=== PATIENT | female | born 1945 | race Two or more races ===

== ENCOUNTER 2023-01-17 09:33 | Emergency (ER) | payer OTHER ==
[~2023-01-17] VITALS: Ht 160 cm; Wt 61.2 kg
[~2023-01-17 09:33] MED LIST: NAPR500T14 PO; TIZANIDINE HCL4 MG PO
[2023-01-17] MEDS ORDERED: AMBIEN5 MG PO (09:49)
[2023-01-17] MEDS ORDERED: COZAAR50 MG PO (09:50)
[2023-01-17] MEDS ORDERED: APRESOLINE 10MG10 MG PO (09:50)
== END 2023-01-17 13:41 ==
LOC: ER 09:33
DX: F41.9 Anxiety disorder, unspecified (principal); I10 Essential (primary) hypertension; E03.9 Hypothyroidism, unspecified; E78.00 Pure hypercholesterolemia, unspecified

== ENCOUNTER 2023-11-24 05:00 | Day surgery (SDC) | payer OTHER ==
[2023-11-17 08:54] LABS: HEMATOCRIT 36.9 % (36.0-45.00); HEMOGLOBIN 12.4 g/dL (12.0-15.00); MEAN CELL VOLUME 78.9 fL (80.00-100.00); MEAN CORPUSCULAR HEMOGLOBIN 26.5 pg (27.00-32.0); MEAN CORPUSCULAR HGB CONC 33.6 g/dl (32.0-36.0); PLATELET COUNT 214 K/uL (150-450); RED BLOOD COUNT 4.67 M/uL (4.00-6.00)
[2023-11-17 09:28] LABS: INR 1.04; PARTIAL THROMBOPLASTIN TIME 30.9 SECONDS (22.0-34.0); PROTHROMBIN TIME 11.3 SECONDS (9.0-11.5)
[2023-11-17 09:45] LABS: URINE APPEARANCE Clear; URINE BILIRRUBIN Negative (NEGATIVE); URINE BLOOD Trace; URINE COLOR Yellow; URINE GLUCOSE Negative (NEGATIVE); URINE KETONE Negative (NEGATIVE); URINE LEUKOCYTE Small; URINE NITRATE Negative; URINE PROTEIN Negative (NEGATIVE); URINE UROBILINOGEN 0.2 E.U./dl
[2023-11-17 09:46] LABS: ALBUMIN 3.6 gm/dL (3.4-5.0); BILIRUBIN TOTAL 0.34 mg/dL (0.3-1.2); CREATININE SERUM 0.78 mg/dL (0.55-1.02); GFR 71.81; GLOBULINA 3.9 G/DL (2.4-3.5); POTASSIUM 3.84 mEq/L (3.5-5.1); TOTAL PROTEIN 7.5 gm/dL (6.4-8.2)
[2023-11-17 09:50] LABS: URINE BACTERIA 536.7 uL (0.0-1933); URINE EPITHELIAL CELLS 23.7 uL (0.0-38.8); URINE RBC 3.6 uL (0.0-20.8)
[2023-11-17 09:57] LABS: URINE CAST 0.15 uL (0.0-1.40)
[~2023-11-24 05:00] MED LIST changes: +AMBIEN5 MG PO; +APRESOLINE 10MG10 MG PO; +COZAAR50 MG PO; +ROSUVASTATIN; +SYNTHROID
[2023-11-24] MEDS ORDERED: CIPROFLOXACIN IN 5 % DEXTROSE 400 MG/200 ML PIGGYBAG IV ONE (08:15)
[2023-11-24] MEDS ORDERED: LIDOCAINE HCL 1%/EPINEPHRINE 20ML VIAL IJ ONE (08:15)
[2023-11-24] MEDS ORDERED: LIDOCAINE HCL 1% 20ML VIAL IJ ONE (08:15)
[2023-11-24] MEDS ORDERED: CEFAZOLIN SODIUM 1,000 MG VIAL IV SCH (09:15)
[2023-11-24] MEDS ORDERED: FAMOTIDINE/PF 20 MG/10 ML SYRINGE IV SCH (09:15)
[2023-11-24] MEDS ORDERED: MORPHINE SULFATE 4 MG/ML VIAL IV ONE (10:20)
== END 2023-11-24 11:30 | disposition home or self-care (01) ==
LOC: CIR.AMB 05:00
PROVIDERS: ATTEND Specialist
DX: D21.6 Benign neoplasm of connective and other soft tissue of trunk, unspecified (principal); Z88.0 Allergy status to penicillin; I10 Essential (primary) hypertension; E03.9 Hypothyroidism, unspecified; K21.9 Gastro-esophageal reflux disease without esophagitis; K29.70 Gastritis, unspecified, without bleeding